=== PATIENT | female | born 1975 | race Caucasian/White ===

== ENCOUNTER 2017-12-05 18:12 | Emergency (ER) | payer MEDICAID, SELFPAY ==
[2017-12-05 18:23] VITALS: BP 138/96; PULSE 103; RESP 16; TEMP 37.1; O2SAT 98; BMI 38.1
--- NOTE | 2017-12-05 18:26 | HMH.EDUTC ---
[facility] [place] Disposition Clinical Impression: Cough Disposition: Home, Self-Care Condition on Discharge: Good Instructions: Cough Additional Instructions: Follow up with family doctor Return if needed Take cough medication as prescribed If you began to have any Shortness of Breath or worsening of pain go straight to ER Prescriptions: Dextromethorphan Polistirex [Delsym] 10 ml PO Q12H PRN #200 sulma.er.12h PRN Reason: Cough Time of Disposition: 19:26 Medical Decision Making - Medical Records Medical records reviewed: Yes: I reviewed the patient's medical records. Vital Signs: 12/05/17 18:23 Temperature 98.8 F Temperature Source Temporal Artery Scan Pulse Rate [Left Brachial] 103 H Respiratory Rate 16 Blood Pressure [Left Arm] 138/96 Blood Pressure Mean [Left Arm] 110 Blood Pressure Source [Left Arm] Automatic Cuff Blood Pressure Position [Left Arm] Sitting 02 Sat by Pulse Oximetry 98 Oxygen Delivery Method Room Air Orders (Tests/Meds): ORDERS Category Date Time Status Chest XR 2 view (NOT portable) [XR chest 2V] Stat Exams 12/05/17 18:31 Taken - Radiology Data #1 Image(s): Chest Image Reviewed: Yes I reviewed the patient's radiology image w/the ED provider Preliminary Findings: No Infiltrates Seen - Trevor Inquiry Pt receiving controlled substance: No Trevor was queried for this patient: No [facility] [place] HPI - General Stated complaint: Rib Pain, Chest Congestions Mode of Arrival: Ambulatory Source of Information: Patient Limitations: No Limitations Description of Symptoms (Recalled from Triage Doc. by RN): C/O cough and chest congestion HEENT Symptoms (Recalled from RN notes): No Resp Symptoms (Recalled from RN notes): Yes (cough and chest congestion) Skin Symptoms (Recalled from RN notes): No MS Symptoms (Recalled from RN notes): No Functional Status (Recalled from RN notes): n/a - History of Present Illness Provider Complaint: Patient state that she has been having cough and congestion for over a week State that she has coughed so much she is feeling sore in her left rib area State that she seen her family doctor on and they prescribed her some cough medication but when she went to the Pharmacy to pick it they told her they didn't have it so she was unsure what happened because her family doctor office was then closed. - Related Data Previous Rx's Medication Instructions Recorded Dextromethorphan Polistirex 10 ml PO Q12H PRN #200 sulma.er.12h 12/05/17 [Delsym] Allergies Allergy/AdvReac Type Severity Reaction Status Date / Time No Known Allergies Allergy Unverified 10/26/17 15:28 - Worker's Comp Is this a Worker's Comp case?: No H History I have reviewed the patient's past medical history: Yes Medical History: Denies:: Cancer, Diabetes Mellitus Type 1, Diabetes Mellitus Type 2, MRSA Amputation: No Fractures: No - *Social History Smoking Status: Never smoker Alcohol Intake: never - Psychiatric History Expresses thoughts of harming self/others: None Suicide Plan Description: No Plan ROS Obtained: Yes All systems reviewed & no additional complaints Physical Exam - General General appearance: alert, in no apparent distress - Chest Chest inspection: Present: normal inspection, symmetric chest wall rise. Absent: tenderness - Respiratory Respiratory exam: Present: normal lung sounds bilaterally. Absent: respiratory distress - Cardiovascular Cardiovascular exam: Present: regular rate, normal rhythm. Absent: JVD - Neurological Exam Neurological exam: Present: alert, oriented X3
--- NOTE | 2017-12-05 18:31 | ED_ITS ---
[facility] [place] Disposition Clinical Impression: Cough Disposition: Home, Self-Care Condition on Discharge: Good Instructions: Cough Additional Instructions: Follow up with family doctor Return if needed Take cough medication as prescribed If you began to have any Shortness of Breath or worsening of pain go straight to ER Prescriptions: Dextromethorphan Polistirex [Delsym] 10 ml PO Q12H PRN #200 sulma.er.12h PRN Reason: Cough Time of Disposition: 19:26 Medical Decision Making - Medical Records Medical records reviewed: Yes: I reviewed the patient's medical records. Vital Signs: 12/05/17 18:23 Temperature 98.8 F Temperature Source Temporal Artery Scan Pulse Rate [Left Brachial] 103 H Respiratory Rate 16 Blood Pressure [Left Arm] 138/96 Blood Pressure Mean [Left Arm] 110 Blood Pressure Source [Left Arm] Automatic Cuff Blood Pressure Position [Left Arm] Sitting 02 Sat by Pulse Oximetry 98 Oxygen Delivery Method Room Air Orders (Tests/Meds): ORDERS Category Date Time Status Chest XR 2 view (NOT portable) [XR chest 2V] Stat Exams 12/05/17 18:31 Taken - Radiology Data #1 Image(s): Chest Image Reviewed: Yes I reviewed the patient's radiology image w/the ED provider Preliminary Findings: No Infiltrates Seen - Trevor Inquiry Pt receiving controlled substance: No Trevor was queried for this patient: No [facility] [place] HPI - General Stated complaint: Rib Pain, Chest Congestions Mode of Arrival: Ambulatory Source of Information: Patient Limitations: No Limitations Description of Symptoms (Recalled from Triage Doc. by RN): C/O cough and chest congestion HEENT Symptoms (Recalled from RN notes): No Resp Symptoms (Recalled from RN notes): Yes (cough and chest congestion) Skin Symptoms (Recalled from RN notes): No MS Symptoms (Recalled from RN notes): No Functional Status (Recalled from RN notes): n/a - History of Present Illness Provider Complaint: Patient state that she has been having cough and congestion for over a week State that she has coughed so much she is feeling sore in her left rib area State that she seen her family doctor on and they prescribed her some cough medication but when she went to the Pharmacy to pick it they told her they didn't have it so she was unsure what happened because her family doctor office was then closed. - Related Data Previous Rx's Medication Instructions Recorded Dextromethorphan Polistirex 10 ml PO Q12H PRN #200 sulma.er.12h 12/05/17 [Delsym] Allergies Allergy/AdvReac Type Severity Reaction Status Date / Time No Known Allergies Allergy Unverified 10/26/17 15:28 - Worker's Comp Is this a Worker's Comp case?: No [facility] History I have reviewed the patient's past medical history: Yes Medical History: Denies:: Cancer, Diabetes Mellitus Type 1, Diabetes Mellitus Type 2, MRSA Amputation: No Fractures: No - *Social History Smoking Status: Never smoker Alcohol Intake: never - Psychiatric History Expresses thoughts of harming self/others: None Suicide Plan Description: No Plan ROS Obtained: Yes All systems reviewed & no additional complaints Physical Exam - General General appearance: alert, in no apparent distress - Chest Chest inspection: Present: normal inspection, symmetric chest wall rise. Absent
--- NOTE | 2017-12-05 18:31 | XR_ITS ---
XR chest 2V Ordering Physician: Unique Contreras Patient Age: 42 years: Female HISTORY: ITS.REASON: congestion Cough, congestion. TECHNIQUE: PA and lateral COMPARISON :2 view chest January 2009. PCXR 03/17/2011 02/21/2009 FINDINGS Less optimal inspiration today versus prior study. There is question of a very very subtle infiltrate at the left base with slightly accentuated density projected over the anterior fifth rib and and left cardiac apex. This could be summation shadow but question a small patchy area of infiltrate with overall appearance. Likely involving the left lower lobe Left upper lung field is clear. Right lung is clear. Heart omar and mediastinal structures satisfactory. . Heart, omar and mediastinal structures otherwise unremarkable stable. IMPRESSION: No prominent findings. However question & suspect very subtle low-density infiltrate LLL.. Equivocal Clinical correlation required.
== END 2017-12-05 19:33 | disposition home or self-care (01) ==
PROVIDERS: Emergency Provider Nurse Practitioner; Family Provider Internal Medicine Adolescent Medicine
DX: R05 Cough (principal)
CPT/HCPCS: 71046; 99202

== ENCOUNTER 2019-02-24 09:39 | Emergency (ER) | payer SELFPAY ==
[2019-02-24 09:47] VITALS: BP 156/98; PULSE 95; RESP 18; TEMP 37.1; O2SAT 96; BMI 34.7
--- NOTE | 2019-02-24 10:11 | HMH.EDUTC ---
[facility] [place] Disposition Clinical Impression: Genital warts Disposition: Home, Self-Care Condition on Discharge: Good Instructions: DI for Genital Warts Additional Instructions: Dr Rousseau will see you Wednesday03/03/19 at 9:30. Please bring drivers license, insurance cards and previous [employer] records if available. Avoid sexual contact until you are seen by Dr Rousseau for further evaluation. Referrals: Domonique Rousseau MD [Staff Physician] - Time of Disposition: 10:19 Medical Decision Making - Trevor Inquiry Pt receiving controlled substance: No Vital Signs: 02/24/19 09:47 Temperature 98.7 F Temperature Source Oral Pulse Rate [Right Brachial] 95 H Respiratory Rate 18 Blood Pressure [Right Arm] 156/98 H Blood Pressure Mean [Right Arm] 117 Blood Pressure Source [Right Arm] Automatic Cuff Blood Pressure Position [Right Arm] Sitting 02 Sat by Pulse Oximetry 96 Oxygen Delivery Method Room Air [facility] [place] HPI - General Stated complaint: bumps vagina area Time Seen by Provider: 02/24/19 10:11 Mode of Arrival: Family Vehicle Source of Information: Patient Limitations: No Limitations Description of Symptoms (Recalled from Triage Doc. by RN): c/o bumps on my private area x 2 days. Denies itching and burning HEENT Symptoms (Recalled from RN notes): No Resp Symptoms (Recalled from RN notes): No Skin Symptoms (Recalled from RN notes): Yes MS Symptoms (Recalled from RN notes): No Functional Status (Recalled from RN notes): n/a - History of Present Illness Provider Complaint: Patient noticed bumps around vagina 2 days ago. She is sexually active. No new condoms, products, etc. No new detergents or soaps. Pumps are painless, do not itch, have not bled or drained. Onset (ago): day(s) (2) Location: genitals Relieving factors: none Exacerbating factors: none Associated symptoms: denies other symptoms Treatments prior to arrival: none - Related Data Home Medications Medication Instructions Recorded Confirmed Metformin HCl [Fortamet] 500 mg PO DAILY 02/24/19 02/24/19 Allergies Allergy/AdvReac Type Severity Reaction Status Date / Time No Known Allergies Allergy Verified 02/24/19 09:51 - Worker's Comp Is this a Worker's Comp case?: No [facility] History - Hepatitis A Screen Drug use history?: No High risk sexual behaviors?: No History of sexually transmitted infection?: No Currently employed?: No Childcare worker?: No Do you have indoor plumbing?: Yes Do you have electricity?: Yes Attestation statement:: This patient has been screened for Hepatitis A risk factors. I have reviewed the patient's past medical history: Yes Medical History: Reports:: Diabetes Mellitus Type 2 Denies:: Cancer, Diabetes Mellitus Type 1, MRSA Other Surgeries: Yes: Tubal Ligation Amputation: No Fractures: No - Social History Smoking Status: Never smoker Alcohol Intake: never Occupational Status: other - Psychiatric History Expresses thoughts of harming self/others: None Suicide Plan Description: No Plan Family Hx:: Diabetes, Heart Attack ROS Obtained: Yes All systems reviewed & no additional complaints - Genitourinary Female Genitourinary: Reports genital lesions Physical Exam - General General appearance: alert, in no apparent distress - Eye Eye exam: Present: PERRL - ENT ENT exam: Present: normal oropharynx - Respiratory Respiratory exam: Present: normal lung sounds bilaterally - Cardiovascular Cardiovascular exam: Present: regular rate, normal rhythm - External exam: Present: lesions (slightly raised, irregular lesions along perineal area with warty appearance) - Extremities Exam Extremities exam: Present: normal inspection, full ROM - Neurological Exam Neurological exam: Present: alert, oriented X3 - Psychiatric Psychiatric exam: Present: normal affect, normal mood - Skin Skin exam: Present: warm, dry
--- NOTE | 2019-02-24 10:16 | ED_ITS ---
[facility] [place] Clinical Impression: Genital warts Disposition: Home, Self-Care Condition on Discharge: Good Instructions: DI for Genital Warts Additional Instructions: Dr Rousseau will see you Wednesday03/03/19 at 9:30. Please bring drivers license, insurance cards and previous [employer] records if available. Avoid sexual contact until you are seen by Dr Rousseau for further evaluation. Referrals: Domonique Rousseau MD [Staff Physician] - Time of Disposition: 10:19 Medical Decision Making - Trevor Inquiry Pt receiving controlled substance: No Vital Signs: 02/24/19 09:47 Temperature 98.7 F Temperature Source Oral Pulse Rate [Right Brachial] 95 H Respiratory Rate 18 Blood Pressure [Right Arm] 156/98 H Blood Pressure Mean [Right Arm] 117 Blood Pressure Source [Right Arm] Automatic Cuff Blood Pressure Position [Right Arm] Sitting 02 Sat by Pulse Oximetry 96 Oxygen Delivery Method Room Air [facility] [place] - General Stated complaint: bumps vagina area Time Seen by Provider: 02/24/19 10:11 Mode of Arrival: Family Vehicle Source of Information: Patient Limitations: No Limitations Description of Symptoms (Recalled from Triage Doc. by RN): c/o bumps on my private area x 2 days. Denies itching and burning HEENT Symptoms (Recalled from RN notes): No Resp Symptoms (Recalled from RN notes): No Skin Symptoms (Recalled from RN notes): Yes MS Symptoms (Recalled from RN notes): No Functional Status (Recalled from RN notes): n/a - History of Present Illness Provider Complaint: Patient noticed bumps around vagina 2 days ago. She is sexually active. No new condoms, products, etc. No new detergents or soaps. Pumps are painless, do not itch, have not bled or drained. Onset (ago): day(s) (2) Location: genitals Relieving factors: none Exacerbating factors: none Associated symptoms: denies other symptoms Treatments prior to arrival: none - Related Data Home Medications Medication Instructions Recorded Confirmed Metformin HCl [Fortamet] 500 mg PO DAILY 02/24/19 02/24/19 Allergies Allergy/AdvReac Type Severity Reaction Status Date / Time No Known Allergies Allergy Verified 02/24/19 09:51 - Worker's Comp Is this a Worker's Comp case?: No [facility] History - Hepatitis A Screen Drug use history?: No High risk sexual behaviors?: No History of sexually transmitted infection?: No Currently employed?: No Childcare worker?: No Do you have indoor plumbing?: Yes Do you have electricity?: Yes Attestation statement:: This patient has been screened for Hepatitis A risk factors. I have reviewed the patient's past medical history: Yes Medical History: Reports:: Diabetes Mellitus Type 2 Denies:: Cancer, Diabetes Mellitus Type 1, MRSA Other Surgeries: Yes: Tubal Ligation Amputation: No Fractures: No - Social History Smoking Status: Never smoker Alcohol Intake: never Occupational Status: other - Psychiatric History Expresses thoughts of harming self/others: None Suicide Plan Description: No Plan Family Hx:: Diabetes, Heart Attack ROS Obtained: Yes All systems reviewed & no additional complaints - Genitourinary Female Genitourinary: Reports genital lesions Physical Exam - General General appearance: alert, in no himanshu
[2019-02-24 10:35] VITALS: BP 156/98; PULSE 95; RESP 18; TEMP 37.1; O2SAT 96
== END 2019-02-24 11:04 | disposition home or self-care (01) ==
PROVIDERS: Emergency Provider Physician Assistant
DX: A63.0 Anogenital (venereal) warts (principal)
CPT/HCPCS: 99201

== ENCOUNTER → 2019-06-14 16:57 | Outpatient (CLI) | payer OTHER, SELFPAY | PROVIDERS: Visit Provider Obstetrics & Gynecology | DX: L02.91 Cutaneous abscess, unspecified (principal) | CPT/HCPCS: 87070; 87077; 87186; 87205 ==